=== PATIENT | male | born 1980 | race Caucasian/White ===

== ENCOUNTER 2024-08-17 19:26 | Emergency (ER) | payer BC, SELFPAY ==
--- OUTSIDE RECORDS SUMMARY | 2024-08-17 19:28 | XMS_ITS | Clinical Summary ---
Author Organization [facility] Address [address] [address] Phone Care Team Providers Care Dispensary Attendant Name Role Phone Unavailable Primary Care Provider Unavailabl e Allergies Active Allergy Reactions Criticality Noted Date Comments Environmental Hives High 02/08/2023 soaps Food Hives High 02/08/2023 Starches Tobacco Medications ondansetron (Zofran ODT) 4 MG disintegrating tablet Take 1 Tablet by mouth every eight hours as needed for Nausea (Nausea and Vomiting). 5 Tablet 02/09/20 Active HYDROcodone-acetam inophen ([place]) 5-325 MG oral tablet Take 1-2 Tablets by mouth every four hours as needed for Pain. Limit acetaminophen to 4000 mg per day from all sources. 12 Tablet 02/09/20 Active Active Problems No known active problems Social History Tobacco Use Types Packs/Day Years Used Date Smoking Tobacco: Never Assessed IP Custom IPV Answer Date Recorded Do you feel UNSAFE in any of your personal relationships with your family members or any other acquaintances? No 2022 Sex and Gender Information Value Date Recorded Sex Assigned at Not on file Legal Sex Male 7:40 AM CDT Gender Identity Not on file Sexual Orientation Not on file Obstetrics History Last Filed Vital Signs Vital Sign Reading Time Taken Comments Blood Pressure 167/91 02/08/2023 7:44 AM CDT Pulse 65 02/08/2023 7:44 AM CDT Temperature 36.9 C (98.4 F) 02/08/2023 7:44 AM CDT Respiratory Rate 22 02/08/2023 7:44 AM CDT Oxygen Saturation 95% 02/08/2023 7:44 AM CDT Inhaled Oxygen Concentration - - Weight 161 kg (355 lb) 02/08/2023 7:44 AM CDT Height 193 cm (6' 4) 02/08/2023 7:44 AM CDT Body Mass Index 43.21 02/08/2023 7:44 AM CDT Plan of Treatment Health Maintenance Due Date Last Done Comments Hepatitis B Vaccine (Standin g Order) (1 of 3 - 19+ 3-dose series) 2001 PERTUSSIS (Standing Order) 2001 TETANUS (Standing Order) 2001 COVID-19 Vaccine (2023-2 5 season) 2024 Influenza Vaccine Seasonal (Standing Order) (#1) 2024 HPV Vaccine (Standing Order) Aged Out No longer eligible based on patient's age to complete this topic Pneumococcal/PCV20 Vaccine: Pediatrics (2-5 yrs) and At-Risk Patients (6-64 yrs) (Standing Order) Aged Out No longer eligible b ased on patient's age to complete this topic Insurance [facility] OTHER STATE
--- OUTSIDE RECORDS SUMMARY | 2024-08-17 19:28 | XMS_ITS | Continuity of Care Document ---
Author Name NwHIN User [facility] Address Unknown Organization Unknown Address Unknown Alerts, Allergies and Adverse Reactions FILTER APPLIED:All Known Active Allergies Substance Reaction Onset Status (ENVIRONMENTAL) HIVES (Severe) Active (FOOD) HIVES (Severe) Active Encounters FILTER APPLIED:Only known Encounters with Admission Date within the last 5 years Encounter Location Admission Discharge Billing Code Administrative Support Specialist Gracy ruano Emergency [facility] EMERGENCY DEPARTMENT [facility]
[2024-08-17 19:35] VITALS: BP 145/89; PULSE 78; RESP 18; TEMP 36.7; O2SAT 96; BMI 42.0
[2024-08-17 19:37] LABS: Appearance Urine Clear (Clear); Bilirubin Urine Negative (Negative); Blood Urine Negative (Negative); Color Urine Yellow (Yellow); Glucose Urine Negative (Negative); Ketones Urine Trace (Negative); Leukocyte Esterase Urine Negative (Negative); Nitrite Urine Negative (Negative); Protein Urine Negative (Negative); Specific Gravity Urine >= 1.030 (1.000-1.030); Urobilinogen Urine 0.2 (0.2-1.0); pH Urine 5.5 (5.0-8.5)
[2024-08-17 19:42] LABS: RBC Urine 0-2 (0-2); Squamous Epithelial Cell Urine Few (None-Few); WBC Urine 0-2 (0-5)
--- NOTE | 2024-08-17 19:59 | CRLHL7_ITS ---
For Patients: As a result of the Century Cures Act, medical imaging exams and procedure reports are released immediately into your electronic medical record. You may view this report before your referring provider. If you have questions, please contact your health care provider. INDICATION: Left flank pain, history of renal colic. TECHNIQUE: CT abdomen and pelvis without contrast. COMPARISON: 04/03/2013. FINDINGS: Lower chest: Mild subsegmental atelectasis. Liver: Normal in size and attenuation. No suspicious masses. Gallbladder and bile ducts: Cholelithiasis. No biliary dilatation. Pancreas: Unremarkable. No mass or inflammation. Spleen: Normal in size. No masses. Adrenal glands: Normal in size. No nodules. Kidneys: Normal in size. No suspicious masses, stones, or hydronephrosis. GI tract: normal in caliber. Likely appendectomy (2117). Focal area of inflammation that appears to be centered in the fat adjacent to the cecum/ascending colon (99). Vasculature: Abdominal aorta is normal in caliber. Lymph nodes: No lymphadenopathy. Peritoneum/Abdominal Wall: Unremarkable. No sign of mass or infiltration. No free air or significant free fluid. Pelvis: Bladder is unremarkable. Prostate is unremarkable. Bones: No acute or suspicious lesions. IMPRESSION: Focal area of inflamed fat in the right lower quadrant adjacent to the cecum/ascending colon most suggestive of epiploic appendagitis. Likely prior appendectomy. No obstructive urolithiasis identified. Please note that all CT scans at this facility use dose modulation, iterative reconstruction, and/or weight-based dosing when appropriate to reduce radiation dose to as low as reasonably achievable. Dictated by Satya Karimi MD @ 08/17/2024 9:15:57 PM (Electronically Signed)
--- OUTSIDE RECORDS SUMMARY | 2024-08-17 20:27 | XMS_ITS | Continuity of Care Document ---
Author Name NwHIN User [facility] Address Unknown Organization Unknown Address Unknown Alerts, Allergies and Adverse Reactions FILTER APPLIED:All Known Active Allergies Substance Reaction Onset Status (ENVIRONMENTAL) HIVES (Severe) Active (FOOD) HIVES (Severe) Active Encounters FILTER APPLIED:Only known Encounters with Admission Date within the last 5 years Encounter Location Admission Discharge Billing Code Gerontological Nurse Practitioner Gracy ruano Emergency [facility] EMERGENCY DEPARTMENT [facility] [place]
--- OUTSIDE RECORDS SUMMARY | 2024-08-17 20:27 | XMS_ITS | Clinical Summary ---
Author Organization [facility] Address [address] [address] Phone Care Team Providers Care Passenger Train Braker Name Role Phone Unavailable Primary Care Provider Unavailabl e Allergies Active Allergy Reactions Criticality Noted Date Comments Environmental Hives High 02/08/2023 soaps Food Hives High 02/08/2023 Starches Tobacco Medications ondansetron (Zofran ODT) 4 MG disintegrating tablet Take 1 Tablet by mouth every eight hours as needed for Nausea (Nausea and Vomiting). 5 Tablet 02/09/20 Active HYDROcodone-acetam inophen ([place]) 5-325 MG oral tablet Take 1-2 Tablets [...] patient's age to complete this topic Insurance [facility] OTHER STATE
--- NOTE | 2024-08-17 20:34 | ED_ITS ---
HPI - General Adult General Date Seen: 08/17/24 Chief complaint: Urogenital Problems, Male Stated complaint: Upper left back pain-hx of kidney stones Time Seen by Provider: 08/17/24 19:58 Source: patient and family Mode of arrival: ambulatory Limitations: no limitations History of Present Illness HPI narrative: Patient is a very nice 43-year-old gentleman who presents here with left-sided back pain, he has had this for about a week on and off. Describes in his CVA region, not worse when he takes a breath in, or coughs. In fact he does not have any coughing at all or any shortness of breath or chest pain with this. Said earlier on in the week he had some right-sided pain on his abdomen, in his right upper quadrant, this however is gone away. He attributed this to his irritable bowel syndrome however. He does have a history of renal colic however, this presented much the same way as that, took some ibuprofen 3 tablets today and also 3 tablets yesterday. Eating and drinking otherwise fine. No history of fevers chills nausea vomiting diarrhea dysuria frequency or other issues. Was able to work at [employer] at [employer] all day today and is accompanied by his here for evaluation. No history of alcohol or drug use. History of appendectomy in the past Related Data Home Medications ?Medication ?Instructions ?Recorded ?Confirmed No Known Home Medications 08/17/24 08/17/24 Allergies Allergy/AdvReac Type Severity Reaction Status Date / Time No Known Drug Allergies Allergy Verified 08/17/24 19:38 Review of Systems Status of ROS: Reports: 10 or more systems reviewed and unremarkable except as noted in History and below [facility] Social History Smoking Status: Never smoker Do you use any of these nicotine containing products: None Second hand tobacco smoke exposure: No How often do you have a drink containing alcohol: never How often do you have six or more drinks on one occasion: Never AUDIT-C Alcohol total score: 0 Non-prescribed substance use: denies use service: No Exam Narrative: Exam Narrative: On examination in room 3 he is in no apparent distress he is pleasant alert moves all extremities independently and well. Pupils equal round reactive to light there is no scleral icterus redness is TMs are normal his oropharynx is n ormal his neck is supple his chest is good air entry bilaterally no wheezing crackles noted, no splinting at all. Heart sounds no clicks murmurs or gallops, no CVA tenderness is noted, he does not have a lot of abdominal pain associated with this. There is no palpable masses, bowel sounds are normal, normal male genitalia no groin all hernias. Moves all extremities independently and well. Skin reveals no petechiae rashes Const: Vital Signs, click to edit/add: Vital Signs - 24 hr 08/17/24 19:35 Temperature 98.1 F Pulse Rate [Pulse Oximeter] 78 Respiratory Rate 18 Blood Pressure [Ri ght Upper Arm] 145/89 H Pulse Oximetry 96 Oxygen Delivery Me thod Room Air Documenting provider has reviewed patient's vital signs: yes Course Course ED Course: Discussed with the patient, no evidence of any renal colic, urinalysis is benign, there is evidence of epiploic appendagitis, which she did tell me he had right lower quadrant right-sided pain previous to this occurring. He denies any chest pain shortness of breath or anything else, and feels comfortable going home and is actually asking for this. I do think he needs to take ibuprofen 60 100 mg 3 times a day, this may be muscle related. He can supplement this with acetaminophen. I did offer him a muscle relaxant but he declined this after discussion , copy of this report of his radiology was given to the patient Vital Signs Vital signs: Initial Vital Signs Temperature 98.1 F 08/17/24 19:35 Temperature Source Temporal Artery Scan 08/17/24 19:35 Pulse Rate 78 08/17/24 19:35 Pulse Rhythm Regular 08/17/24 19:35 Respiratory Rate 18 08/17/24 19:35 Blood Pressure 145/89 H 08/17/24 19:35 Blood Pressure Mean 107 H 08/17/24 19:35 Blood Pressure Position Sitting 08/17/24 19:35 Pulse Oximetry 96 08/17/24 19:35 Oxygen Delivery Method Room Air 08/17/24 19:35 Vital Signs Temperature 98.1 F 08/17/24 19:35 Pulse Rate 78 08/17/24 19:35 Respiratory Rate 18 08/17/24 19:35 Blood Pressure 145/89 H 08/17/24 19:35 Pulse Oximetry 96 08/17/24 19:35 Oxygen Delivery Method Room Air 08/17/24 19:35 Temperature 98.1 F 08/17/24 19:35 Pulse Rate 78 08/17/24 19:35 Respiratory Rate 18 08/17/24 19:35 Blood Pressure 145/89 H 08/17/24 19:35 Pulse Oximetry 96 08/17/24 19:35 Oxygen Delivery Method Room Air 08/17/24 19:35 Medical Decision Making MDM Narrative Medical decision making narrative: During this evaluation of this patient I considered multiple differential diagnosis is which included the life-threatening such as appendicitis, aortic aneurysm, mesenteric ischemia, bowel perforation, volvulus, and bowel obstruction. Other differential diagnosis is include but are not limited to cholecystitis, pancreatitis, hepatitis, gastritis, GERD, diverticulitis, peptic ulcer disease, pyelonephritis/UTI, renal colic/stone, testicular torsion as well as other acute scrotal processes, inflammatory bowel disease, as well as other etiologies Lab Data Lab results reviewed: Yes I reviewed the patient's lab results Labs: Lab Results 08/17/24 Range/Units 19:29 Urine Color Yellow (Yellow) Urine Appearance Clear (Clear) Urine pH 5.5 (5.0-8.5) Ur Specific Fisher >= 1.030 (1.000-1.030) Urine Protein Negative (Negative) Urine Glucose (UA) Negative (Negative) Urine Ketones Trace A (Negative) Urine Blood Negative (Negative) Urine Nitrite Negative (Negative) Urine Bilirubin Negative (Negative) Urine Urobilinogen 0.2 (0.2-1.0) Ur Leukocyte Esterase Negative (Negative) Urine RBC 0-2 (0-2) Urine WBC 0-2 (0-5) Ur Squamous Epith Cells Few (None-Few) Urine Bacteria None (None) Imaging Data CT scan - abdomen: Attestation: I have reviewed the pertinent imaging results. My impression: No evidence of renal colic, he has 1 gallstone noted his gallbladder, but otherwise I do not see any intra-abdominal issues. Radiologist's impression: atient: [facility] Facility:?[facility] Patient ID:?[id number] Site Patient ID:?[id number]. Site :?[id number] Study:?CT-Abdomen/Pelvis WITHOUT-08/17/2024 8:21:06 PM Ordering Physician:?Radha Pedraza Final Report: INDICATION: Left flank pain, history of renal colic. TECHNIQUE: CT abdomen and pelvis without contrast. COMPARISON: 04/03/2013. FINDINGS: Lower chest: Mild subsegmental atelectasis. Liver: Normal in size and attenuation. No suspicious masses. Gallbladder and bile ducts: Cholelithiasis. No biliary dilatation. Pancreas: Unremarkable. No mass or inflammation. Spleen: Normal in size. No masses. Adrenal glands: Normal in size. No nodules. Kidneys: Normal in size. No suspicious masses, stones, or hydronephrosis. GI tract: normal in caliber. Likely appendectomy (2/117). Focal area of inflammation that appears to be centered in the fat adjacent to the cecum/ascending colon (2/99). Vasculature: Abdominal aorta is normal in caliber. Lymph nodes: No lymphadenopathy. Peritoneum/Abdominal Wall: Unremarkable. No sign of mass or infiltration. No free air or significant free fluid. Pelvis: Bladder is unremarkable. Prostate is unremarkable. Bones: No acute or suspicious lesions. IMPRESSION: Focal area of inflamed fat in the right lower quadrant adjacent to the cecum/ascending colon most suggestive of epiploic appendagitis. Likely prior appendectomy. No obstructive urolithiasis identified. Please note that all CT scans at this facility use dose modulation, iterative reconstruction, and/or weight-based dosing when appropriate to reduce radiation dose to as low as reasonably achievable. Dictated by Satya Karimi MD @ 08/17/2024 9:15:57 PM (Electronic Signature) Discharge Plan Discharge Clinical Impression: Acute left flank pain, Epiploic appendagitis Patient Disposition: Home w/ Parent or Adult Condition: Stable Instructions: Flank Pain (ED), Heat Pack Application (ED), Epiploic Appendagitis (ED) Additional Instructions: Home rest use of ice, gentle stretching, ibuprofen 6-800 mg p.o. t.i.d., may use Tylenol 1 g p.o. t.i.d. also follow-up if increasing abdominal pain fevers chills shortness of breath chest discomfort or other symptoms. Sometimes chiropractic manipulation could also be a benefit for this. Activity Level: Light activity Prescriptions: No Action No Known Home Medications Follow Up/Referrals: Robel Montoya MD [Primary Care Provider] - Stand Alone Forms: [employer] Info Instructions
[2024-08-17 21:29] VITALS: BP 125/74; PULSE 71; RESP 18; TEMP 36.7; O2SAT 96
[2024-08-17 21:31] VITALS: BP 125/74; PULSE 71; RESP 18; TEMP 36.7
== END 2024-08-17 21:31 | disposition home or self-care (01) ==
PROVIDERS: Emergency Provider Family Medicine; PCP Family Medicine
DX: R10.9 Unspecified abdominal pain (principal); K65.9 Peritonitis, unspecified
CPT/HCPCS: 74176; 81001; 99283; 99284